=== PATIENT | male | born 1970 | race African-American/Black ===

== ENCOUNTER 2020-11-17 04:29 | Emergency (ER) | payer MEDICAID ==
[~2020-11-17] VITALS: Ht 172.7 cm; Wt 79.9 kg
[2020-11-17] MEDS ORDERED: ALBUTEROL 6.7GM HFA INHALER ORI ONE (07:15)
[2020-11-17 07:40] VITALS: BP 128/86
[2020-11-17] MEDS ORDERED: ALBU6.7H9 INH (08:34)
== END 2020-11-17 08:50 | disposition home or self-care (01) ==
LOC: ER 04:29
DX: U07.1 COVID-19 (principal); R06.02 Shortness of breath; Z79.899 Other long term (current) drug therapy; F12.10 Cannabis abuse, uncomplicated
CPT/HCPCS: 71045; 94640; 99283

== ENCOUNTER → 2023-02-10 | Emergency (ER) | payer MEDICAID ==
[~2023-02-10] VITALS: Ht 175.3 cm; Wt 82.0 kg
[~2023-02-10] MED LIST: ALBU6.7H3 INH; CYCL10TA21 MT; KETOROLAC 30MG/ML VIAL IM NR; KETOROLAC 30MG/ML VIAL IM ONE; LIDO700A15 TP
[2023-02-10 13:54] VITALS: O2SAT 98
[2023-02-10 15:12] VITALS: BP 125/85; PULSE 85; RESP 18; TEMP 98.6
== END ==
LOC: ER 13:49
DX: M54.50 Low back pain, unspecified (principal); I10 Essential (primary) hypertension; F12.90 Cannabis use, unspecified, uncomplicated; V89.2XXA Person injured in unspecified motor-vehicle accident, traffic, initial encounter; Y93.89 Activity, other specified; Y92.89 Other specified places as the place of occurrence of the external cause; Y99.8 Other external cause status
CPT/HCPCS: 99283; 96372; J1885